=== PATIENT | female | born 1965 | race African-American/Black ===

== ENCOUNTER 2022-05-28 14:14 | Inpatient (IN) | payer OTHER ==
[2022-05-28 15:17] LABS: #Basophils 0.1 10x3/uL (0.0-0.2); #Eosinphils 0.1 10x3/uL (0.0-0.5); #Monocytes 0.6 10x3/uL (0.0-1.1); #Neutrophils 6.5 10x3/uL (1.5-8.4); %Basophils 0.6 % (0.0-2.0); %Eosinophils 1.4 % (0.0-6.0); %Lymphocytes 9.6 % (18.0-47.0); %Monocytes 7.1 % (0.0-10.0); %Neutrophils 81.1 % (40.0-75.0); Hemoglobin 13.2 g/dL (12.0-15.5); Mean Corpuscular HGB CONC 33.5 g/dL (32.0-36.0); Mean Corpuscular Hemoglobin 25.6 pg (27.0-33.0); Mean Corpuscular Volume 76.5 fl (81.6-98.3); Mean Platelet Volume 10.2 fl (7.4-10.4); Platelet Count 263 10x3/uL (150-450); RBC Distribution Width 14.7 % (11.5-14.5); Red Blood Cell (RBC) Count 5.15 10x6/uL (3.90-5.03); White Blood Cell (WBC) Count 8.1 10x3/uL (3.5-10.5)
[2022-05-28 15:33] LABS: ALT (SGPT) 24 U/L (8-55); AST (SGOT) 37 U/L (5-34); Albumin 3.1 g/dL (3.5-5.0); Alkaline Phosphatase 81 U/L (40-110); Anion Gap 13 mmol/L (10-20); BUN (Urea Nitrogen) 15 mg/dL (9.8-20.1); Bilirubin, Total 0.6 mg/dL (0.2-1.2); Calc. Creatinine Clearance 0 mL/min (70-130); Calcium 8.7 mg/dL (7.8-10.44); Carbon Dioxide 24 mmol/L (22-29); Chloride 108 mmol/L (98-107); Estimated GFR 43; Globulin 2.6 g/dL (2.4-3.5); Glucose 147 mg/dL (70-105); Potassium 3.9 mmol/L (3.5-5.1); Protein, Total 5.7 g/dL (6.0-8.3); Sodium 141 mmol/L (136-145)
[2022-05-28] MEDS ORDERED: Furosemide 40 MG/4 ML VIAL ONE (16:00)
[2022-05-28 16:03] LABS: CKMB 12.3 ng/mL (0-6.6)
[2022-05-28] MEDS ORDERED: Aspirin Chewable 81 MG TAB ONE (16:21)
[2022-05-28] MEDS ORDERED: Lorazepam 1 MG TAB ONE (16:21)
[2022-05-28] MEDS ORDERED: Nitroglycerin 2% Ointment 1 INCH/1 GM Packet ONE (16:22)
[2022-05-28 17:47] LABS: SARS-CoV-2 NAA Rapid Test Not Detected (NotDetected)
[2022-05-28 18:22] LABS: Troponin I 0.113 ng/mL (< 0.028)
[2022-05-28] MEDS ORDERED: Dextrose 50% Abboject 50 ML SYRINGE SLOW IVP PRN (19:38)
[2022-05-28] MEDS ORDERED: Dextrose 5% in Water 1,000 ML IV PRN (19:38)
[2022-05-28 19:55] LABS: Magnesium 1.7 mg/dL (1.6-2.6)
[2022-05-28 20:55] VITALS: BMI 45.0
[2022-05-28] MEDS ORDERED: Potassium Chloride 20 MEQ TAB PO SCH (21:00)
[2022-05-28 21:42] LABS: Troponin I 0.089 ng/mL (< 0.028)
[2022-05-28] MEDS: Nitroglycerin 2% Ointment 1 INCH/1 GM Packet TOP SCH (21:45)
[2022-05-28] MEDS: Enalaprilat Dihydrate 1.25 MG/ML VIAL SLOW IVP SCH (21:45)
[2022-05-29] MEDS ORDERED: MAGNESIUM SULFATE IVPB SCH (00:15)
[2022-05-29] MEDS ORDERED: D5W IVPB SCH (00:15)
[2022-05-29 04:06] LABS: #Basophils 0.1 10x3/uL (0.0-0.2); #Eosinphils 0.3 10x3/uL (0.0-0.5); #Monocytes 0.6 10x3/uL (0.0-1.1); #Neutrophils 5.6 10x3/uL (1.5-8.4); %Basophils 0.7 % (0.0-2.0); %Eosinophils 3.3 % (0.0-6.0); %Lymphocytes 13.7 % (18.0-47.0); %Monocytes 7.5 % (0.0-10.0); %Neutrophils 74.5 % (40.0-75.0); Hemoglobin 12.2 g/dL (12.0-15.5); Mean Corpuscular HGB CONC 32.5 g/dL (32.0-36.0); Mean Corpuscular Hemoglobin 25.5 pg (27.0-33.0); Mean Corpuscular Volume 78.5 fl (81.6-98.3); Mean Platelet Volume 10.1 fl (7.4-10.4); Platelet Count 267 10x3/uL (150-450); RBC Distribution Width 14.6 % (11.5-14.5); Red Blood Cell (RBC) Count 4.78 10x6/uL (3.90-5.03); White Blood Cell (WBC) Count 7.5 10x3/uL (3.5-10.5)
[2022-05-29 04:26] LABS: Anion Gap 13 mmol/L (10-20); BUN (Urea Nitrogen) 15 mg/dL (9.8-20.1); Calc. Creatinine Clearance 84 mL/min (70-130); Calcium 8.4 mg/dL (7.8-10.44); Carbon Dioxide 27 mmol/L (22-29); Cardiac Risk 6.6 (Less than 4.5); Chloride 106 mmol/L (98-107); Cholesterol 232 mg/dl (< 200 Desired); Estimated GFR 41; Glucose 175 mg/dL (70-105); HDL Cholesterol 35 mg/dL (>60 Neg Risk); LDL Cholesterol, Calculated 172 mg/dL; Potassium 3.6 mmol/L (3.5-5.1); Sodium 142 mmol/L (136-145); Triglycerides 124 mg/dL (Less than 150)
[2022-05-29] MEDS: Nitroglycerin 2% Ointment 1 INCH/1 GM Packet TOP SCH ×2 (06:04→13:26)
[2022-05-29] MEDS: Furosemide 40 MG/4 ML VIAL SLOW IVP SCH ×2 (06:04→13:25)
[2022-05-29] MEDS: Enalaprilat Dihydrate 1.25 MG/ML VIAL SLOW IVP SCH ×2 (06:04→13:25)
[2022-05-29] MEDS: HumaLOG 300 UNITS/3 ML VIAL SC PRN ×2 (06:21→20:40)
[2022-05-29] MEDS ORDERED: Carvedilol 3.125 MG TAB PO SCH (08:00)
[2022-05-29] MEDS: Aspirin 81 mg Enteric Coated Tablet PO SCH (09:15)
[2022-05-29] MEDS: Enoxaparin Sodium 40 MG/0.4 ML SYRINGE SC SCH (09:15)
[2022-05-29 13:13] LABS: Hemoglobin A1c 8.2 % (4.0-6.0)
[2022-05-29] MEDS: Benzonatate 100 MG CAP PO PRN ×2 (13:25→22:34)
[2022-05-29] MEDS: Carvedilol 3.125 MG TAB PO SCH (17:21)
[2022-05-29] MEDS ORDERED: Valsartan 80 MG TAB PO SCH (19:00)
[2022-05-29] MEDS: Acetaminophen 325 MG TAB PO PRN (22:34)
[2022-05-30] MEDS: Benzonatate 100 MG CAP PO PRN ×3 (04:04→23:15)
[2022-05-30 04:29] LABS: #Eosinphils 0.3 10x3/uL (0.0-0.5); #Monocytes 0.5 10x3/uL (0.0-1.1); %Basophils 0.4 % (0.0-2.0); %Eosinophils 3.8 % (0.0-6.0); %Lymphocytes 18.2 % (18.0-47.0); %Monocytes 7.3 % (0.0-10.0); Hemoglobin 13.2 g/dL (12.0-15.5); Mean Corpuscular HGB CONC 32.8 g/dL (32.0-36.0); Mean Corpuscular Hemoglobin 25.8 pg (27.0-33.0); Mean Corpuscular Volume 78.7 fl (81.6-98.3); Platelet Count 260 10x3/uL (150-450); RBC Distribution Width 14.5 % (11.5-14.5); Red Blood Cell (RBC) Count 5.11 10x6/uL (3.90-5.03); White Blood Cell (WBC) Count 7.1 10x3/uL (3.5-10.5)
[2022-05-30 04:46] LABS: Anion Gap 13 mmol/L (10-20); BUN (Urea Nitrogen) 16 mg/dL (9.8-20.1); Calc. Creatinine Clearance 79 mL/min (70-130); Calcium 8.5 mg/dL (7.8-10.44); Carbon Dioxide 27 mmol/L (22-29); Chloride 105 mmol/L (98-107); Estimated GFR 39; Glucose 110 mg/dL (70-105); Magnesium 1.9 mg/dL (1.6-2.6); Potassium 3.5 mmol/L (3.5-5.1); Sodium 141 mmol/L (136-145)
[2022-05-30] MEDS: Furosemide 40 MG/4 ML VIAL SLOW IVP SCH ×2 (06:31→13:18)
[2022-05-30] MEDS: Valsartan 80 MG TAB PO SCH (09:29)
[2022-05-30] MEDS: Enoxaparin Sodium 40 MG/0.4 ML SYRINGE SC SCH (09:29)
[2022-05-30] MEDS: Carvedilol 3.125 MG TAB PO SCH ×2 (09:29→17:36)
[2022-05-30] MEDS: Aspirin 81 mg Enteric Coated Tablet PO SCH (09:29)
[2022-05-30] MEDS: Atorvastatin Calcium 40 MG TAB PO SCH (20:05)
[2022-05-30] MEDS: HumaLOG 300 UNITS/3 ML VIAL SC PRN (23:00)
[2022-05-30] MEDS: Acetaminophen 325 MG TAB PO PRN (23:15)
[2022-05-31 05:38] LABS: Anion Gap 13 mmol/L (10-20); BUN (Urea Nitrogen) 18 mg/dL (9.8-20.1); Calc. Creatinine Clearance 88 mL/min (70-130); Calcium 8.4 mg/dL (7.8-10.44); Carbon Dioxide 27 mmol/L (22-29); Chloride 104 mmol/L (98-107); Estimated GFR 44; Glucose 125 mg/dL (70-105); Potassium 3.7 mmol/L (3.5-5.1); Sodium 140 mmol/L (136-145)
[2022-05-31] MEDS: Furosemide 40 MG/4 ML VIAL SLOW IVP SCH ×2 (06:36→15:45)
[2022-05-31] MEDS: Aspirin 81 mg Enteric Coated Tablet PO SCH (08:31)
[2022-05-31] MEDS: Carvedilol 3.125 MG TAB PO SCH ×2 (08:31→16:11)
[2022-05-31] MEDS: Benzonatate 100 MG CAP PO PRN (08:31)
[2022-05-31] MEDS: Enoxaparin Sodium 40 MG/0.4 ML SYRINGE SC SCH (08:31)
[2022-05-31] MEDS: Valsartan 80 MG TAB PO SCH (08:32)
[2022-05-31] MEDS ORDERED: guaiFENesin/Codeine 200 mg/20 mg 10 ml Cup PO PRN (14:09)
[2022-05-31] MEDS: guaiFENesin/Codeine Phosphate 100 mg/10 mg 5 ml UD Cup PO PRN (16:11)
[2022-05-31] MEDS: Atorvastatin Calcium 40 MG TAB PO SCH (19:49)
[2022-05-31] MEDS: HumaLOG 300 UNITS/3 ML VIAL SC PRN (19:50)
[2022-06-01] MEDS: Acetaminophen 325 MG TAB PO PRN (00:02)
[2022-06-01] MEDS: guaiFENesin/Codeine Phosphate 100 mg/10 mg 5 ml UD Cup PO PRN (00:06)
[2022-06-01 05:07] LABS: Anion Gap 12 mmol/L (10-20); BUN (Urea Nitrogen) 19 mg/dL (9.8-20.1); Calc. Creatinine Clearance 82 mL/min (70-130); Calcium 8.5 mg/dL (7.8-10.44); Carbon Dioxide 28 mmol/L (22-29); Chloride 104 mmol/L (98-107); Estimated GFR 41; Glucose 134 mg/dL (70-105); Potassium 3.7 mmol/L (3.5-5.1); Sodium 140 mmol/L (136-145)
[2022-06-01] MEDS: Carvedilol 3.125 MG TAB PO SCH (08:24)
[2022-06-01] MEDS: Valsartan 80 MG TAB PO SCH (08:24)
[2022-06-01] MEDS: Aspirin 81 mg Enteric Coated Tablet PO SCH (08:25)
[2022-06-01] MEDS: Enoxaparin Sodium 40 MG/0.4 ML SYRINGE SC SCH (08:25)
[2022-06-01] MEDS ORDERED: Furosemide 40 MG TAB PO SCH ×2 (09:00)
[2022-06-01 12:30] VITALS: BP 168/95; TEMP 97
== END 2022-06-01 12:30 | disposition home or self-care (01) | DRG 291 ==
LOC: CSHERS 14:14 → CSHTELE 20:39
PROVIDERS: ADMIT Family Medicine; ATTEND Family Medicine
DX: I13.0 Hypertensive heart and chronic kidney disease with heart failure and stage 1 through stage 4 chronic kidney disease, or unspecified chronic kidney disease (principal); I50.43 Acute on chronic combined systolic (congestive) and diastolic (congestive) heart failure; E11.22 Type 2 diabetes mellitus with diabetic chronic kidney disease; N18.30 Chronic kidney disease, stage 3 unspecified; R77.8 Other specified abnormalities of plasma proteins; I42.9 Cardiomyopathy, unspecified; R74.8 Abnormal levels of other serum enzymes; E11.42 Type 2 diabetes mellitus with diabetic polyneuropathy; Z20.822 Contact with and (suspected) exposure to COVID-19; E03.9 Hypothyroidism, unspecified; F41.9 Anxiety disorder, unspecified; E78.5 Hyperlipidemia, unspecified; Z91.14 Patient's other noncompliance with medication regimen; Z79.4 Long term (current) use of insulin
CPT/HCPCS: 36415; 36416; 71045; 80048; 80053; 80061; 82553; 83036; 83735; 83880; 84439; 84443; 84484; 85025; 93005; 93306; 96374; 97139; J1650; J1815; J1940; J3475; U0002